=== PATIENT | female | born 1980 | race African-American/Black ===

== ENCOUNTER 2017-08-19 06:07 | Day surgery (SDC) | payer BC, OTHER ==
[2017-08-12 10:06] LABS: ABSOLUTE EOSINOPHILS # (AUTO) 0.1 10^3/uL (0.0-0.6); ABSOLUTE LYMPHOCYTES (AUTO) 1.3 10^3/uL (0.5-4.7); ABSOLUTE MONOCYTES (AUTO) 0.5 10^3/uL (0.1-1.4); BASOPHILS % (AUTO) 0.5 % (0-2); EOSINOPHILS % (AUTO) 1.2 % (0-6); HEMATOCRIT 39.7 % (36.0-47.0); HEMOGLOBIN 13.2 g/dL (12.0-15.5); LYMPHOCYTES % (AUTO) 16.5 % (13-45); MEAN CORPUSCULAR HEMOGLOBIN 31.7 pg (27.0-33.4); MEAN CORPUSCULAR HGB CONC 33.3 g/dL (32.0-36.0); MEAN CORPUSCULAR VOLUME 95 fl (80-97); MONOCYTES % (AUTO) 6.9 % (3-13); PLATELET COUNT 415 10^3/uL (150-450); RED BLOOD COUNT 4.18 10^6/uL (3.72-5.28); RED CELL DISTRIBUTION WIDTH 12.6 % (11.5-14.0); SEGMENTED NEUTROPHILS % (AUTO) 74.9 % (42-78); TOTAL CELLS COUNTED % (AUTO) 100 %
[2017-08-12 10:27] LABS: ALANINE AMINOTRANSFERASE 28 U/L (9-52); ALBUMIN 3.6 g/dL (3.5-5.0); ALKALINE PHOSPHATASE 39 U/L (38-126); ANION GAP 6 (5-19); ASPARTATE AMINO TRANSFERASE 21 U/L (14-36); BILIRUBIN,DIRECT 0.3 mg/dL (0.0-0.4); BILIRUBIN,TOTAL 1.2 mg/dL (0.2-1.3); BLOOD UREA NITROGEN 10 mg/dL (7-20); CALCIUM 9.5 mg/dL (8.4-10.2); CARBON DIOXIDE 26 mmol/L (22-30); CHLORIDE 107 mmol/L (98-107); GLUCOSE 81 mg/dL (75-110); POTASSIUM 4.9 mmol/L (3.6-5.0); TOTAL PROTEIN 6.1 g/dL (6.3-8.2)
[~2017-08-19 06:07] MED LIST: CEFAZOLIN 2 GM/D5W RTU 2 GM/50 ML RTUPB IV PRN; LACTATED RINGERS 1000 ML IV PRN; LIDOCAINE 0.5% INJ-PF (5 MG/ML) 50 ML SDV SUBCUT PRN
[2017-08-19] MEDS ORDERED: FENTANYL CITRATE INJ/PF 100 MCG/2 ML AMPUL ONE ×2 (06:37→10:52)
[2017-08-19] MEDS ORDERED: ACETAMINOPHEN 100 ML IV ONE (06:38)
[2017-08-19] MEDS ORDERED: PROPOFOL INJ 200 MG/20 ML VIAL IV ONE (06:38)
[2017-08-19] MEDS ORDERED: MIDAZOLAM 2 MG/2 ML INJ ONE (06:38)
[2017-08-19] MEDS ORDERED: HYDROMORPHONE HCL INJ/PF 2 MG/ML AMPULE ONE (06:38)
[2017-08-19] MEDS ORDERED: ALBUTEROL SULFATE 0.083% NEB 2.5 MG/3 ML AMPUL NEB ONE (07:24)
[2017-08-19] MEDS ORDERED: BUPIVACAINE HCL 0.25 % INJ/PF (2.5 MG/1 ML) 30 ML VIAL ONE (07:26)
[2017-08-19] MEDS ORDERED: SCOPOLAMINE HYDROBROMIDE 1.5 MG PATCH.TD72 ONE (07:26)
[2017-08-19] MEDS ORDERED: FAMOTIDINE INJ/PF 20 MG/2 ML SDV IV ONE (07:26)
[2017-08-19] MEDS ORDERED: METHYLENE BLUE 50 MG/10 ML AMPULE ONE (07:26)
[2017-08-19] MEDS ORDERED: DIPHENHYDRAMINE HCL 50 MG/ML VIAL IV PRN (09:01)
[2017-08-19] MEDS ORDERED: PROMETHAZINE HCL INJ 25 MG/1 ML VIAL IV PRN ×2 (09:01→12:13)
[2017-08-19] MEDS ORDERED: FENTANYL CITRATE INJ/PF 100 MCG/2 ML AMPUL IV PRN ×3 (09:01)
[2017-08-19] MEDS ORDERED: MEPERIDINE HCL/PF INJ 25 MG/1 ML DISP.SYRIN IV PRN (09:01)
[2017-08-19] MEDS ORDERED: OXYCODONE-ACETAMINOPHEN 5-325 MG TABLET PO PRN (12:11)
[2017-08-19] MEDS ORDERED: ONDANSETRON HCL INJ/PF 4 MG/2 ML SDV IV PRN (12:13)
[2017-08-19] MEDS ORDERED: MORPHINE SULFATE 10 MG/ML INJ IV PRN ×2 (12:43→12:46)
--- NOTE | 2017-08-19 12:53 | OPERATIVE REPORT E ---
Operative Report NAME: RUSTY HWANG : 1980 AGE: 37Y DATE OF SURGERY: 08/19/2017 ROOM: PREOPERATIVE DIAGNOSES: 1. ABNORMAL UTERINE BLEEDING - LEIOMYOMA. 2. ABNORMAL UTERINE BLEEDING NOT RESPONSIVE TO PREVIOUS MEDICAL THERAPY. 3. CHRONIC PELVIC PAIN. POSTOPERATIVE DIAGNOSES: 1. ABNORMAL UTERINE BLEEDING - LEIOMYOMA. 2. ABNORMAL UTERINE BLEEDING NOT RESPONSIVE TO PREVIOUS MEDICAL THERAPY. 3. CHRONIC PELVIC PAIN. 4. EXTENSIVE ADHESIONS IN THE ANTERIOR ABDOMINAL WALL ATTACHED TO THE ANTERIOR UTERINE WALL. OPERATIONS: 1. Robotic total laparoscopic hysterectomy. 2. Bilateral salpingectomy and oophorectomy. The salpingectomy was remnants of the fallopian tubes from previous surgery, and oophorectomy was performed. 3. Incidental cystotomy repair, 8 mm in size, with a double-layer closure. 4. Cystoscopy. 5. Extensive lysis of adhesions. SURGEON: Monica Cuba MD AIRCRAFT DELIVERY CHECKER: Raji Qiu MD ANESTHESIA: General. ESTIMATED BLOOD LOSS: 200 mL. INTRAVENOUS FLUIDS: 1900 mL. URINE OUTPUT: 300 mL clear urine throughout the procedure and after the removal of the uterus, and had a little bit of blood-tinged urine after the removal of the uterus, and upon inspection from above laparoscopically, there was a small, approximately 5- to 8-mm-size incidental cystotomy. COMPLICATIONS: Incidental cystotomy, 5-8 mm in size, status post repair. INDICATION: The patient is a 37-year-old G 3, P 3-0-0-3, with a history of previous x2 and a history of bilateral tubal ligation with a history of chronic pelvic pain and abnormal uterine bleeding with a 2-cm fibroid that is unresponsive to medical therapy. Patient desired definitive surgical management including the removal of her ovaries after appropriate consent and patient acknowledging that she will be in surgical menopause after removal of the ovaries and after a proper education of the benefits of the ovary at the age 37 in a premenopausal time age. Patient desired to proceed with a definitive surgical removal of her organs. She was counseled on the procedure including but not limited to bleeding, infection, injury to surrounding organs or tissue including bowel or bladder, and the need of transfusion and possible need of exploratory laparotomy in case there is extensive bleeding that cannot by identified or visualized during the surgical procedure or due to many adhesions from her previous surgical interventions. The patient understood and consented to the procedure and agreed to proceed to the operating room. FINDINGS: Extensive anterior uterine wall to the anterior abdominal wall adhesions plastered completely. Distortion of the lower uterine segment and adhesions to the right and left pelvic sidewalls. After removal of the uterus, there was an incidental 5- to 2-ln-fp-size cystotomy that was identified that was closed with a double-layer closure, and cystoscopy revealed appropriate seal of the cystotomy site at the top of the bladder, away from the ureters. It was completely tightly sealed, the remaining bladder wall and the bladder cystotomy portion. There was excellent efflux/strong flow of the ureters bilaterally with methylene blue off of the cystoscopy portion. The uterus was definitely soft, boggy, consistent with adenomyosis. The ovaries appeared to be normal in size bilaterally. There were remnants of fallopian tubes that were also taken out as well. PROCEDURE: The patient was taken to the operating room. General anesthesia was induced without difficulty. Patient was placed in dorsal lithotomy position, was sterilely prepped and draped in the usual sterile fashion. A Mark Hugger was placed and maintained to control core body temperature. A Betancur catheter was placed in the bladder. Single-tooth tenaculum was placed in the cervix and grasped. Cervical os was dilated. Uterine sound approximately 8 cm. Two figure-of-8 stitches around 3 and 9 o'clock were placed for anchoring stitches before placing the VCare, and the VCare manipulator was attached to the uterus with a cervical ring and anchored to the stitches on the right and left. The weighted speculum and single-tooth tenaculum were removed. Two sutures were placed on the lateral aspect of the cervix to be used as traction later and for hemostasis as well in the procedure, and they were anchored to the stitches on the right and left with the ring itself. A vertical supraumbilical incision was performed, where the Veress needle was introduced. After injection of local Marcaine 0.25%, the Veress needle was then placed in the abdominal cavity. Through the Veress needle, carbon dioxide was infused until pneumoperitoneum was established and maintained, and this was done after a drop test was successfully performed. The Veress needle was removed, and the supraumbilical incision was slightly extended. A 12-mm trocar was inserted and placed in the abdominal cavity under direct visualization with the laparoscope without any difficulty. Trocar removed. The robot laparoscope was placed in the abdominal cavity. Please see the above findings. Three additional ports, one in right lower, one in left lower, and one in the right upper quadrant, were inserted under direct visualization. Quarter-percent was injected as local prior to initiating the insertions of the trocars. Special attention was then paid to the ureters bilaterally, and the ureters bilaterally were both well away from the surgical field at all times. Their peristalsis was of a normal nature. At this point, after multiple lysis of adhesions on the right side and the left side of the pelvic sidewalls and anteriorly, the right round ligament was grasped, cauterized and transected with a vessel seal all the way down to the level of the uterine's. The right infundibulopelvic ligament was cauterized also multiple times with a vessel seal and transected along the right side of the uterine pelvic sidewall takedown. On the contralateral side, it was performed in a similar fashion. The round ligament was cauterized and transected. The left infundibulopelvic ligament was cauterized and transected. In the middle of the process of all of this going back and forth, the anterior uterine wall was taken down piece by piece with vessel seal, applying the vessel seal as close as possible to the anterior abdominal wall and cauterizing and transecting along the anterior aspect. Alternating back and forth on the right and the left and trying to visualize the anterior and the posterior cul-de-sac appropriately, multiple adhesions were also taken down using blunt dissection or using electrocautery with cauterization and transection. The bladder flap was pushed all the way down as much as possible that could have been visualized. Again, anteriorly all the adhesions were taken down. It seemed at the anterior uterine wall we were cauterizing and transecting into the myometrium a little bit to the anterior abdominal wall until it was freed up completely. At this time, the right and the left sides of the uterine's were visualized, and they were cauterized multiple times and transected. Again, throughout the surgical procedure, inspection of the ureters was performed at all times to make sure they were far away from the surgical incision and cauterizations at all times. Again, the bladder flap was created as much as it could have been visualized and pushed away as much as could have been done. At this point, the console *------* and to go and reinsert another VCare because the current VCare that was inside was not functioning appropriately. Reinsertion of the VCare was performed, and now the ring was identified anteriorly around the cervix. An anterior colpotomy was performed. The colpotomy was then extended, circumscribing the cervix and the vaginal mucosa very carefully anteriorly and posteriorly and then connecting them together. The uterus, the remnants of the fallopian tubes on the right and the left sides, and the ovaries were all delivered through the vaginal mucosa. Prior to closing the vaginal cuff, attention was then paid to the ureters again, and they both had excellent peristalsis in normal fashion. When the uterus was being pulled out by the clerical dentist assistant, the clerical dentist assistant noted slightly blood tinged urine coming out, even though throughout the whole procedure clear urine was coming through. Inspection of the bladder from above revealed a 5- to 8-mm incidental cystotomy that was identified. The vaginal cuff was closed using a V-Loc suture in a continuous fashion, and then at this time irrigation was performed, and then the cystotomy was identified again, performing a double-layer closure with 4-0 Vicryl and 3-0 Vicryl. The 4-0 Vicryl was used to reapproximate the edges of the bladder mucosa the 3-0 Vicryl the edges of submucosa as an imbricating layer. That was performed robotically with intracorporeal suturing successfully. After closure of the vaginal cuff and the cystotomy repair, attention was turned below to the cystoscopy portion. While closing the vaginal cuff, I asked Anesthesia to give methylene blue. Performing the cystoscopy portion revealed excellent strong efflux from both ureters bilaterally. The cystotomy portion was identified, and it was completely sealed off with a double bubble sign and complete strong integrity of the remaining bladder wall mucosa. Once the cystoscopy portion was performed and visualized as mentioned above, the cystoscope was removed and a new Betancur catheter was inserted for the patient to go home with it. Inspecting from above as well, there was no leakage of saline that was visualized from above. FloSeal was applied to the vaginal cuff region and also to the cystotomy repair portion right above it. Attention was also turned to the right and left pelvic sidewalls, and they were completely hemostatic. The IP ligaments that were cauterized previously were completely hemostatic, and at this point the cystoscope was removed. The robot was undocked. The abdomen was desufflated. Trocars were removed. The supraumbilical incision was repaired with a UR-6 to reapproximate the fascia and repair it. All the remaining incisions were closed with 4-0 Monocryl and reapproximated in subcuticular fashion. The remaining local 0.25% Marcaine was injected around the incisions for postoperative pain control. Dermabond was applied on top of the incisions. All sponge, lap and needle counts were correct x2. Patient did receive prophylactic IV antibiotics. Betancur bag was noted to contain clear urine at the end of procedure after performing the cystoscopy. The vaginal mucosa was inspected, and there were no lacerations. Sponge stick was performed to take out any remnants of the old clotted blood. The patient was extubated and successfully went to the recovery room. Patient is in PACU, in stable condition. Patient tolerated her procedure well. All sponge, lap and needle counts were correct x2. Patient is going to go home with a Betancur catheter to be taken out 5-7 days later and will follow up with me later this week. DICTATING PHYSICIAN: Monica Cuba MD [id number] PHY#: [id number] ID: [id number] JOB#: [id number] ACCT: [id number] cc:Monica Cuba >
[2017-08-19] MEDS ORDERED: MORPHINE SULFATE 10 MG/ML INJ ONE (13:58)
[2017-08-19] MEDS ORDERED: HYDROMORPHONE HCL INJ/PF 2 MG/ML AMPULE IV PRN (14:10)
[2017-08-19] MEDS ORDERED: ONDANSETRON HCL INJ/PF 4 MG/2 ML SDV ONE (16:22)
[2017-08-19] MEDS ORDERED: GLYCOPYRROLATE INJ 0.4 MG/2 ML VIAL ONE (16:22)
[2017-08-19] MEDS ORDERED: NEOSTIGMINE METHYLSULFATE 10 MG/10 ML VIAL ONE (16:22)
[2017-08-19] MEDS ORDERED: VECURONIUM BROMIDE INJ 10 MG VIAL IV ONE (16:22)
[2017-08-19] MEDS ORDERED: DEXAMETHASONE SOD PHOSPHATE INJ 4 MG/1 ML VIAL ONE (16:22)
[2017-08-19] MEDS ORDERED: LIDOCAINE 2% INJ-PF (20 MG/ML) 2 ML AMPUL ONE (16:22)
[2017-08-19] MEDS ORDERED: KETOROLAC TROMETHAMINE 60 MG/2 ML SDV ONE (16:22)
[2017-08-19] MEDS ORDERED: NORMAL SALINE 1000 ML 1,000 ML IV PRN (17:49)
[2017-08-19] MEDS: IBUPROFEN 800 MG TABLET PO PRN (18:43)
[2017-08-19] MEDS ORDERED: NORMAL SALINE 1000 ML 1,000 ML IV ONE (21:30)
[2017-08-19] MEDS: NORMAL SALINE 1000 ML 1,000 ML IV PRN (21:36)
[2017-08-19] MEDS ORDERED: SIMETHICONE 80 MG TAB.CHEW PO SCH (22:00)
[2017-08-19] MEDS ORDERED: SIMETHICONE 80 MG TAB.CHEW PO PRN (23:00)
[2017-08-20] MEDS: IBUPROFEN 800 MG TABLET PO PRN (03:57)
[2017-08-20] MEDS: NORMAL SALINE 1000 ML 1,000 ML IV PRN (04:50)
[2017-08-20 07:30] LABS: ABSOLUTE BASOPHILS # (AUTO) 0.1 10^3/uL (0.0-0.2); ABSOLUTE LYMPHOCYTES (AUTO) 1.7 10^3/uL (0.5-4.7); ABSOLUTE MONOCYTES (AUTO) 0.8 10^3/uL (0.1-1.4); ABSOLUTE NEUT (AUTO) 5.8 10^3/uL (1.7-8.2); BASOPHILS % (AUTO) 0.8 % (0-2); EOSINOPHILS % (AUTO) 0.3 % (0-6); HEMATOCRIT 30.7 % (36.0-47.0); HEMOGLOBIN 10.2 g/dL (12.0-15.5); LYMPHOCYTES % (AUTO) 20.6 % (13-45); MEAN CORPUSCULAR HGB CONC 33.3 g/dL (32.0-36.0); MEAN CORPUSCULAR VOLUME 96 fl (80-97); MONOCYTES % (AUTO) 9.4 % (3-13); PLATELET COUNT 271 10^3/uL (150-450); RED BLOOD COUNT 3.19 10^6/uL (3.72-5.28); RED CELL DISTRIBUTION WIDTH 13.4 % (11.5-14.0); SEGMENTED NEUTROPHILS % (AUTO) 68.9 % (42-78); TOTAL CELLS COUNTED % (AUTO) 100 %; WHITE BLOOD COUNT 8.5 10^3/uL (4.0-10.5)
[2017-08-20 07:53] LABS: ALANINE AMINOTRANSFERASE 31 U/L (9-52); ALBUMIN 2.5 g/dL (3.5-5.0); ALKALINE PHOSPHATASE 28 U/L (38-126); ASPARTATE AMINO TRANSFERASE 23 U/L (14-36); BILIRUBIN,DIRECT 0.2 mg/dL (0.0-0.4); BILIRUBIN,TOTAL 1.4 mg/dL (0.2-1.3); BLOOD UREA NITROGEN 8 mg/dL (7-20); CALCIUM 8.3 mg/dL (8.4-10.2); CARBON DIOXIDE 22 mmol/L (22-30); CHLORIDE 114 mmol/L (98-107); GLUCOSE 89 mg/dL (75-110); POTASSIUM 4.1 mmol/L (3.6-5.0); TOTAL PROTEIN 4.6 g/dL (6.3-8.2)
[2017-08-20 07:59] LABS: ANION GAP 3 (5-19)
[2017-08-20 09:29] VITALS: BP 107/64
[2017-08-20] MEDS ORDERED: CHOLECALCIFEROL (D3) 1,000 UNIT TABLET PO SCH (10:00)
[2017-08-20] MEDS ORDERED: FERROUS SULFATE 325 MG TABLET PO SCH (10:00)
== END 2017-08-20 11:05 | disposition home or self-care (01) ==
LOC: OROUT 06:07 → 2S 13:25 → OROUT 08-20 11:05
PROVIDERS: ATTEND Obstetrics & Gynecology
PROC: 0UT94ZZ Resection of Uterus, Percutaneous Endoscopic Approach (ICD-10-PCS; 2017-08-19)
PROC: 0UT24ZZ Resection of Bilateral Ovaries, Percutaneous Endoscopic Approach (ICD-10-PCS; 2017-08-19)
PROC: 0UT74ZZ Resection of Bilateral Fallopian Tubes, Percutaneous Endoscopic Approach (ICD-10-PCS; 2017-08-19)
PROC: 8E0W4CZ Robotic Assisted Procedure of Trunk Region, Percutaneous Endoscopic Approach (ICD-10-PCS; 2017-08-19)
PROC: 0DNU4ZZ Release Omentum, Percutaneous Endoscopic Approach (ICD-10-PCS; 2017-08-19)
PROC: 0TQB4ZZ Repair Bladder, Percutaneous Endoscopic Approach (ICD-10-PCS; principal; 2017-08-19 08:00)
DX: N93.9 Abnormal uterine and vaginal bleeding, unspecified (principal); N84.0 Polyp of corpus uteri; D25.1 Intramural leiomyoma of uterus; D25.2 Subserosal leiomyoma of uterus; N83.8 Other noninflammatory disorders of ovary, fallopian tube and broad ligament; G89.29 Other chronic pain; R10.2 Pelvic and perineal pain; N73.6 Female pelvic peritoneal adhesions (postinfective); N99.72 Accidental puncture and laceration of a genitourinary system organ or structure during other procedure; T88.8XXA Other specified complications of surgical and medical care, not elsewhere classified, initial encounter; Y92.238 Other place in hospital as the place of occurrence of the external cause; J45.909 Unspecified asthma, uncomplicated; D64.9 Anemia, unspecified
CPT/HCPCS: 49329; 51860; 58571; S2900; 36415; 80053; 81025; 840; 85025; 86850; 86900; 86901; 88307; J0131; J0690; J1100; J1170; J1885; J2250; J2270; J2405; J2704; J3010; J3490; J7030; Q9968; S0028